=== PATIENT | female | born 1965 | race Caucasian/White ===

== ENCOUNTER → 2020-08-10 | Outpatient (CLI) | payer OTHER ==
[~2020-08-10] MED LIST: ADULT LOW DOSE81 MG PO; CALCIUM 500 WI1 EAC4 PO; FISHOIL; NABUMETONE 500500 M1 PO; ONE-A-DAY WOMENS PO; RELAFEN500 MG PO
== END ==
LOC: RAD 10:28
PROVIDERS: ATTEND Family Medicine
DX: Z12.31 Encounter for screening mammogram for malignant neoplasm of breast (principal); N64.89 Other specified disorders of breast